=== PATIENT | female | born 1965 ===

== ENCOUNTER 2021-01-30 11:05 | Outpatient (CLI) | payer BC, SELFPAY ==
[2021-01-30 12:35] LABS: SARS-CoV-2 RNA PCR Negative (Negative)
== END 2021-01-30 11:06 | disposition home or self-care (01) ==
PROVIDERS: PCP Internal Medicine; Visit Provider Nurse Practitioner Family
DX: J06.9 Acute upper respiratory infection, unspecified (principal); Z20.822 Contact with and (suspected) exposure to COVID-19
CPT/HCPCS: C9803; U0003; U0005

== ENCOUNTER 2021-02-24 10:14 | Outpatient (CLI) | payer BC, SELFPAY ==
--- NOTE | ~2021-02-24 | XR_ITS ---
EXAMINATION: XR sinus min 3V DATE: 02/24/2021 10:57 INDICATION: Sinus infection TECHNIQUE: AP, submental, Villarreal, open-mouth Villarreal and lateral views of the nasal bones were obtaine d. COMPARISON: None. FINDINGS: No fractures identified. Specifically the visualized hare of the orbits and paranasal sinuses appea r intact. Nasal septum is midline with left-sided spike. No nasal bone fracture identified. The para nasal sinuses and mastoid air cells appear well-pneumatized. No asymmetric opacification or air-fluid levels identified within the paranasal sinuses. Severe cervical spondylosis. IMPRESSION: 1. No asymmetric opacification or air-fluid levels within the paranasal sinuses Reviewed, dictated and finalized at location A.
[2021-02-24 11:29] LABS: SARS-CoV-2 RNA PCR Negative (Negative)
== END 2021-02-24 10:15 | disposition home or self-care (01) ==
PROVIDERS: PCP Internal Medicine; Visit Provider Nurse Practitioner Family
DX: J32.9 Chronic sinusitis, unspecified (principal); Z20.822 Contact with and (suspected) exposure to COVID-19
CPT/HCPCS: 70220; C9803; U0003; U0005

== ENCOUNTER 2021-06-13 18:24 | Outpatient (CLI) | payer BC, SELFPAY ==
--- NOTE | ~2021-06-13 | XR_ITS ---
EXAMINATION: XR_CERV2-3V_CR DATE: 06/13/2021 18:55 INDICATION: Neck pain. Left-sided radiculopathy. TECHNIQUE: 3 views of cervical spine were obtained. COMPARISON: None. FINDINGS: There is 28 degrees levoscoliosis of cervicothoracic spine. There is 2 mm retrolisthesis of C3 on C4, C4 on C5, C5 on C6, and C6 on C7. Vertebral body heights are normal. There is moderately d ecreased disc height at C3-C4 and severely decreased disc height from C4-C5 through C6-C7. There is s evere bilateral uncovertebral joint osteoarthritis from C3-C4 through C6-C7. There is multilevel mild to moderate facet joint osteoarthritis. There is mild central canal stenosis at the disc levels from C3-C4 through C6-C7. No prevertebral soft tissue swelling. IMPRESSION: 1. Severe cervical spondylosis. 2. Cervicothoracic levoscoliosis. Reviewed, dictated and finalized at location A. IGERATION ENGINEER
== END 2021-06-13 18:25 | disposition home or self-care (01) ==
LOC: CHSIMG 18:26
PROVIDERS: PCP Internal Medicine; Visit Provider Internal Medicine
DX: M54.2 Cervicalgia (principal); M47.22 Other spondylosis with radiculopathy, cervical region
CPT/HCPCS: 72040

== ENCOUNTER 2021-06-19 17:13 | Outpatient (RCR) | payer BC, SELFPAY ==
--- NOTE | 2021-06-25 11:28 | PTOPEVAL ---
Thank you for referring Chikis Alvarenga to [facility].? The patient is scheduled to be seen for therapy? ____x/week for ___ weeks. Please review, sign, date and return this plan of care LEVAR. I agree with and certify that the following plan of care is medically necessary. Referring Physician Date Admitting Provider: Attending Provider: Alejandro Perry MD Referring Provider: *PT Outpatient Evaluation Start: 06/19/21 17:11 Freq: Status: Active Protocol: Document 06/19/21 17:11 [facility] (Rec: 06/19/21 17:48 [facility] [id number]) Therapy Assessment Status Assessment Status Assessment Status Evaluation Evaluation Information Problem Diagnosis cervical radiculopathy L side. Onset 06/06/21 Additional Evaluation Detail ndi = 34% functionally declined Subjective Information patient reports she does not Query Text:As Reported By Patient/ have much pain in her neck, Family but has been having pain/ symptoms in the L shoulder blade. she reports she began having symptoms on 06/06/21. she reports she has history of migraines. she reports she did have symptoms down the L arm at the same time as her L shoulder blade pain. she reports she has been on steroids for since seeing her MD. she reports she has numbness in the small 2 fingers of the L hand and the back/inside of her elbow. she reports she has numbness/ electrical sensations in the L shoulder blade. she reports overall it is better than the pain began, but is now it is stagnant. she reports she has had xrays of the cervical spine but no MRI. she reports she has increased symptoms/ pain in the mornings. she reports she is sleeping in a recliner and not in bed due to pain. Prior Level of Function Comments Additional Prior Level of Function prior to gi, patient Comments reports no issues in the L arm, neck, or shoulder blade Pain Assessment Timing of Pain Assessment Timing of Pain Assessment
--- NOTE | 2021-08-27 09:19 | PCPTNOTE ---
Mrs. Alvarenga attended 1 treatment session on 06/19/21. She failed to return to the clinic and will be discharged from our care. Refer to her initial evaluation for discharge status.
== END 2021-06-19 18:39 | disposition home or self-care (01) ==
LOC: CHSPT 17:13
PROVIDERS: PCP Internal Medicine; Visit Provider Internal Medicine
DX: M54.2 Cervicalgia (principal); M54.10 Radiculopathy, site unspecified
CPT/HCPCS: 97014; 97110; 97161; G0283